=== PATIENT | female | born 1955 | race Caucasian/White ===

== ENCOUNTER → 2024-03-23 09:41 | Outpatient (CLI) | payer MEDICARE, SELFPAY ==
--- OUTSIDE RECORDS SUMMARY | 2024-03-23 10:19 | XMS_ITS | Referral Summary ---
Author Name Unknown Organization [facility] Address [address] [place] [address] Care Team Providers Care Umbrella Tipper Hand Name Role Phone Radha Harris MD Primary Care Provider [phone] Reason for Referral * Specialty Visit (Urgent) - In Process Specialty Diagnoses / Procedures Referred By Rahul de la paz Referred To Contact Diagnoses Left foot infection Open wound of left foot excluding toes without complication, subsequent encounter Radha Harris MD [address] [place] [address] [facility] [address] [place] [id number] Referral ID Status Reason Start Date Expiration Date Visits Requested Visits Authorized [id number] In Process Specialty Services Required 03/13/2024 03/13/2025 99 99 Scheduling Instructions Referral to: [place]: [facility] (POS [id number]) [phone] Please be aware that while I, as your health care provider, have identified this referral as medically indicated, I cannot guarantee your insurance plan will cover it. I recommend you contact your insurance carrier to make sure this is a covered service they will pay for. * Specialty Visit (Urgent) - In Process Specialty Diagnoses / Procedures Referred By Rahul de la paz Referred To Contact Diagnoses Left foot infection Left foot drop Weakness of left lower extremity History of CVA (cerebrovascular accident) Hemiplegia and hemiparesis following cerebral infarction affecting left non-dominant side (HCC) Radha Harris MD [address] [place] [address] Shelia Emery DPM [facility] [address] [place] [address] Referral ID Status Reason Start Date Expiration Date Visits Requested Visits Authorized [id number] In Process Specialty Services Required 02/18/2024 02/17/2025 99 99 Scheduling Instructions Referral to: Non Dr Shelia Emery Medicine Cell Tester [facility] ACN/ Partner: [facility] [address] [facility] [address] P: [phone] F: [phone] Rupert Bass ----Please be aware that while I, as your health care provider, have identified this referral as medically indicated, I cannot guarantee your insurance plan will cover it. I recommend you contact your insurance carrier to make sure this is a covered service they will pay for. Reason for Visit * Reason Onset Date Comments Referral 02/17/2024 Encounter Details Date Type Department Care Team (Late st Contact Info) Description 02/17/2024 Telephone Medicine Primary Care Family Medicine at [address] [phone] Dolores Howell, PSS/PSR NO ADDRESS Referral Allergies Active Allergy Reactions Criticality Noted Date Comments Hydrochlorothiazide Other Low GI & didn't agree with body Prednisone Other High 10/24/2017 Severe agitation; Wanted to kill someone Sulfa Antibiotics Skin: Hives High 08/26/2017 documented as of this encounter (statuses as of 03/12/2024) Medications Medication Sig Dispensed Refills Start Date End Date Status Acetaminophen ER 650 MG Oral Tab CRIndications:Pain after cerebrovascular accident (CVA) Take 1 tablet (650 mg) by mouth every 4 hours as needed for pain. For stroke pain. 100 tablet 1 8 Active Acyclovir 400 MG Oral TabIndications:Recu rrent oral ulcers Take 1 tablet (400 mg) by mouth 2 times a day. For suppression of herpes. 180 tablet 3 8 Active aspirin 81 MG chewable tablet Chew and swallow 1 tablet (81 mg) by mouth daily. 0 Active triamcinolone 0.1 % dental pasteIndications:Ap hthous ulcer Apply to oral lesions BID as needed 5 g 5 3 Active diazePAM 2 MG tabletIndications:C ontrolled substance agreement signed,Spasticity,H istory of CVA (cerebrovascular accident),Spasm,Chr onically on benzodiazepine therapy TAKE ONE(1) TABLET BY MOUTH TWO(2) TIMES DAILY NEEDED FOR ANXIETY OR SPASMS MUST LAST 28 DAYS 56 tablet 0 3 Active venlafaxine ER 37.5 MG 24 hr capsuleIndications: Moderate episode of recurrent major depressive disorder (HCC) TAKE ONE(1) CAPSULE BY MOUTH ONCE DAILY 90 capsule 3 3 Active atorvastatin 80 MG tabletIndications:M ixed hyperlipidemia TAKE ONE(1) TABLET BY MOUTH ONCE DAILY 90 tablet 3 3 Active gabapentin 300 MG capsuleIndications: Neuropathic pain Take one(1) capsule by mouth in the morning, one(1) capsule at noon, and two(2) capsules at bedtime daily 360 capsule 3 4 Active traZODone 100 MG tabletIndications:I nsomnia, unspecified type TAKE ONE(1) TABLET BY MOUTH ONCE DAILY AT BEDTIME ALONG WITH ONE(1) TRAZODONE 50MG TABLET FOR A TOTAL DAILY DOSE OF 150 MG. 90 tablet 1 4 Active traZODone 50 MG tabletIndications:M oderate episode of recurrent major depressive disorder (HCC) TAKE ONE(1) TABLET BY MOUTH AT BEDTIME IN ADDITION TO THE ONE(1) TRAZODONE 100MG TABLET TO GIVE A TOTAL DOSE OF 150MG AT BEDTIME. 90 tablet 3 4 Active busPIRone 15 MG tabletIndications:A nxiety TAKE TWO(2) TABLETS BY MOUTH TWO(2) TIMES DAILY 360 tablet 3 4 Active levothyroxine 112 MCG tabletIndications:H ypothyroidism (acquired) Take 1 tablet (112 mcg) by mouth daily on an empty stomach. 90 tablet 0 4 Active cephalexin 500 MG capsule Take 1 capsule (500 mg) by mouth 2 times a day. 0 Active buPROPion SR 150 MG 12 hr tabletIndications:M oderate episode of recurrent major depressive disorder (HCC) TAKE ONE(1) TABLET BY MOUTH TWO(2) TIMES A DAY. 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 120 tablet 3 3 03/02/20 24 Discontinued traMADol 50 MG tabletIndications:[facility] ([facility] drug therapy,Cramp and spasm Take 1 tablet (50 mg) by mouth 2 times a day as needed for moderate pain or severe pain. 56 tablet 0 4 03/09/20 24 Discontinued documented as of this encounter (statuses as of 03/12/2024) Active Problems Problem Noted Date Diagnosed Date Hemiplegia and hemiparesis f ollowing cerebral infarction affecting left non-dominant side 11/08/2022 Aortic arch atherosclerosis 11/08/2022 Overview: On CTA 04/23/17 Spasticity 12/25/2021 Hyperlipidemia, mixed 01/10/2021 Hypothyroidism (acquired) 01/10/2021 History of CVA (cerebrovascular accident) 2019 Left foot drop 06/30/2020 Essential hypertension 12/28/2019 Onychomycosis 07/16/2019 BEULAH (generalized anxiety disorder) 06/24/2019 [place] In Hand of foot 06/24/2019 Chronic narcotic use 06/10/2019 Overview: She is using tramadol for chronic sciatica 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 Chronically on benzodiazepine therapy 06/10/2019 Rotator cuff impingement syndrome of left should er 08/10/2018 Weakness of left lower extremity 08/10/2018 Controlled substance agreement signed 05/14/2018 Sciatica of left side 09/25/2017 Moderate episode of recurrent major depressive d isorder 09/10/2017 Stenosis of carotid artery 09/03/2017 documented as of this encounter (statuses as of 03/12/2024) Resolved Problems Problem Noted Date Diagnosed Date Resolved Date Aphthous ulcer 09/26/2020 12/20/2023 documented as of this encounter (statuses as of 03/12/2024) Immunizations Name Administration Dates Next Due COVID-19 [email or web address] vector-nr [id number] 01/25/2021 COVID-19 Moderna mRNA bivale nt 6 mos and older, 0.25 or 0.5 mL dose 09/26/2022 DTP 03/24/1963, 0,01/26/1958,12/29,1957 Immune globulin IM (GamaSTAN) 06/20/1997 Influenza quadrivalent 09/03/2021,09/17/2020 Influenza quadrivalent PF 09/03/2019,03/2018,08/14/2017,08/05,08/01/2014 Influenza quadrivalent adjuv anted (Fluad) 09/23/2023,09/06/2022 Influenza quadrivalent high-dose 09/05/2020 Influenza trivalent 10/19/2012,10/24/2011 Influenza trivalent PF 08/24/2015,08/17/2013 Pneumococcal conjugate PCV20 (Prevnar 20) 09/13/2022 Pneumococcal polysaccharide PPSV23 (Pneumovax 23) 04/17/2013 Polio, unspecified 09/14/1964, 4,02/09/1964,06/19,1957 Tdap 01/16/2016,10/24/2011 Zoster live (Zostavax) 09/20/2015 Zoster recombinant (Shingrix) 12/05/2018, 018 poliomyelitis live oral vacc ine trivalent 02/25/1974 documented as of this encounter Social History Tobacco Use Types Packs/Day Years Used Date Smoking Tobacco: Former Cigarettes 1 25 0 11/17/1991 - 11/17/2016 Passive Smoke Exposure: Past Smokeless Tobacco: Never Alcohol Use Standard Drinks/Week Comments No 0 (1 standard drink = 0.6 oz pur e alcohol) PHQ-2 Answer Date Recorded PHQ2 Total Score 0 07/25/2023 Sex and Gender Information Value Date Recorded Sex Assigned at Not on file Gender Identity Not on file Sexual Orientation Not on file documented as of this encounter Miscellaneous Notes * Addendum Note - Radha Harris MD - 03/12/2024 11:53 AM PDTAddended by: RADHA HARRIS on: 03/12/2024 11:53 AM Modules accepted: Orders * Addendum Note - Tiffanie Lopez RN - 03/12/2024 11:49 AM PDTAddended by: TIFFANIE LOPEZ on: 03/12/2024 11:49 AM Modules accepted: Orders * Telephone Encounter - Tiffanie Lopez RN - 03/12/2024 11:40 AM PDT Tori just requested a referral to [facility] three days ago. She is wondering why it is not completed. Explained the referral process & that it will be signed today. It shouldn't require an additional visit since this is a reoccurring/chronic wound/issue. Tiffanie Lopez RN * Telephone Encounter - Dolores Howell PSS/PSMehdi - 03/12/2024 10:02 AM PDT Tori called back, she is not pleased that her referral isn't done. She says that when she sits inDurban Harris's office for a visit it is done at the time, so she doesn't know why this isn't done forher since she called days ago. Warm transfer to RN. Thank you * Telephone Encounter - Dolores Howell PSS/PSMehdi - 03/11/2024 11:04 AM PDT Tori called back to see if this was done yet. Please advise Thank you * Addendum Note - Luis Phan PSS/PSMehdi - 03/09/2024 11:24 AM PDT Addended by: LUIS PHAN on: 03/09/2024 11:24 AM Modules accepted: Orders * Telephone Encounter - Luis Phan PSS/BENITO - 03/09/2024 11:23 AM PDT Per note below, Wound Care referral pended. Provider to complete and sign if approved. Thanks. * Telephone Encounter - Dolores Howell PSS/PSMehdi - 03/09/2024 11:14 AM PDT Tori called because she would like a referral to the wound care center in [place]. She would like this to be placed by Dr. Harris, and she does not want to come in for a visit for this to be done. Could this be done for her based on past notes? Please advise Thank you * Telephone Encounter - Crescencio Edwards PSS/BENITO - 02/18/2024 11:35 AM PDT Patient has reached out to us by Telephone requesting a new Podiatry referral for this patient's left foot infection to be sent to Podiatry, Shelia Briggs. Patient has been seen for this previously last on 01/28/2024. They were last seen in this clinic on 01/28/2024. Referral is pended routing to provider. Please send response back to [facility] [[phone]] * Telephone Encounter - Dolores Howell PSS/BENITO - 02/17/2024 9:35 AM PDT She would like a referral to Podiatry, Shelia Emery. Could this be done for her? Her foot is not healing and she would like to see a specialist for this as she has had several recent visits and it has not resolved. Please advise Thank you documented in this encounter Plan of Treatment Scheduled Referrals Name Type Priority Associated Diagnoses Orde r Schedule Referral to Podiatry Referral STAT Left foot infection Left foot drop Weakness of left lower extremity History of CVA (cerebrovascular accident) Hemiplegia and hemiparesis following cerebral infarction affecting left non-dominant side (HCC) Expected: 02/18/2024, Expires: 02/17/2025 Referral to Wound Care Referral Urgent (Referral Only) Left foot infection Open wound of left foot excluding toes without complication, subsequent encounter Expected: 03/13/2024, Expires: 03/09/2025 documented as of this encounter Visit Diagnoses Diagnosis Left foot infection- Primary Unspecified local infection of skin and subcutaneous tissue Left foot drop Other acquired deformity of ankle and foot Weakness of left lower extremity History of CVA (cerebrovascular accident) Transient ischemic attack (TIA), and cerebral infarction without residual deficits Hemiplegia and hemiparesis following cerebral infarction affecting left non- dominant side (HCC) Open wound of left foot excluding toes without complication, subsequent encounter documented in this encounter Additional Health Concerns Assessment Noted Time PHQ-9 Depression Total Score: 0 07/25/20 23 5:11 PM PDT documented as of this encounter Insurance Payer Benefit Plan / Group Subscriber ID Effective Dates Phone Address Type [employer] [facility] [id number] [address] [place] [address] Medicare documented as of this encounter Care Teams Umbrella Tipper Hand Relationship Specialty Start Date End Date Radha Harris MD PCP - General Family Practice 05/15/22 documented as of this encounter
== END ==
LOC: WC 10:05
PROVIDERS: Family Provider Nurse Practitioner; PCP Nurse Practitioner; Referring Provider Family Medicine; Visit Provider Surgery
DX: L89.893 Pressure ulcer of other site, stage 3 (principal); L84 Corns and callosities; M20.12 Hallux valgus (acquired), left foot; I69.354 Hemiplegia and hemiparesis following cerebral infarction affecting left non-dominant side; R26.9 Unspecified abnormalities of gait and mobility; Z87.891 Personal history of nicotine dependence; M79.672 Pain in left foot
CPT/HCPCS: 11042; 99203; 99213

== ENCOUNTER → 2024-03-29 09:43 | Outpatient (CLI) | payer MEDICARE, SELFPAY | LOC: WC 09:44 | PROVIDERS: Family Provider Nurse Practitioner; PCP Nurse Practitioner; Referring Provider Family Medicine; Visit Provider Surgery | DX: L89.893 Pressure ulcer of other site, stage 3 (principal); L84 Corns and callosities; M21.6X2 Other acquired deformities of left foot; I69.354 Hemiplegia and hemiparesis following cerebral infarction affecting left non-dominant side | CPT/HCPCS: 99212; 99213 ==

== ENCOUNTER → 2024-04-26 10:18 | Outpatient (CLI) | payer MEDICARE, SELFPAY | LOC: WC 10:19 | PROVIDERS: Family Provider Nurse Practitioner; PCP Nurse Practitioner; Referring Provider Family Medicine; Visit Provider Surgery | DX: Z09 Encounter for follow-up examination after completed treatment for conditions other than malignant neoplasm (principal); Z87.2 Personal history of diseases of the skin and subcutaneous tissue; L89.893 Pressure ulcer of other site, stage 3; I69.354 Hemiplegia and hemiparesis following cerebral infarction affecting left non-dominant side | CPT/HCPCS: 99213 ==

== ENCOUNTER → 2024-08-16 08:56 | Outpatient (CLI) | payer MEDICARE, SELFPAY | PROVIDERS: Family Provider Nurse Practitioner; PCP Nurse Practitioner; Referring Provider Family Medicine; Visit Provider Surgery | DX: L89.523 Pressure ulcer of left ankle, stage 3 (principal); L84 Corns and callosities; L53.9 Erythematous condition, unspecified; M21.6X2 Other acquired deformities of left foot; M25.572 Pain in left ankle and joints of left foot | CPT/HCPCS: 11042; 99213; 99214 ==

== ENCOUNTER → 2024-08-16 09:58 | Outpatient (CLI) | payer MEDICARE, SELFPAY ==
--- NOTE | 2024-08-16 10:01 | DI.RAD.S_ITS ---
PROCEDURE: XR ANKLE LT MIN 3V INDICATIONS: Eval for osteo, pressure ulcer of left lateral ankle. TECHNIQUE: 3 views of the ankle were acquired. COMPARISON: None. FINDINGS: Bones: There is a permeative trabecular pattern in the talus and visualized midfoot including the navicular and cuneiform with some trabecular disorganization. Tibiotalar and talocalcaneal joints: Normal in width and alignment without arthritic change. Soft tissues: No soft tissue swelling, calcification or mass. IMPRESSION: Permeative trabecular pattern in the talus navicular and cuneiform. Suggest patient return for full better position foot series for better evaluation. This could indicate infection or Charcot foot development Dictated by: Freddie Deras M.D. on 08/17/2024 at 9:50 Approved by: Freddie Deras M.D. on 08/17/2024 at 9:53
== END ==
PROVIDERS: Family Provider Nurse Practitioner; PCP Family Medicine; Referring Provider Surgery; Visit Provider Surgery
DX: L89.529 Pressure ulcer of left ankle, unspecified stage (principal)
CPT/HCPCS: 73610

== ENCOUNTER → 2024-08-30 08:52 | Outpatient (CLI) | payer MEDICARE, SELFPAY | LOC: WC 08:52 | PROVIDERS: Family Provider Nurse Practitioner; PCP Family Medicine; Referring Provider Family Medicine; Visit Provider Surgery | DX: L89.523 Pressure ulcer of left ankle, stage 3 (principal); L84 Corns and callosities; L53.9 Erythematous condition, unspecified; R23.4 Changes in skin texture; M21.6X2 Other acquired deformities of left foot; I69.354 Hemiplegia and hemiparesis following cerebral infarction affecting left non-dominant side | CPT/HCPCS: 11042 ==

== ENCOUNTER → 2024-09-20 08:53 | Outpatient (CLI) | payer MEDICARE, SELFPAY | LOC: WC 08:53 | PROVIDERS: Family Provider Nurse Practitioner; PCP Family Medicine; Referring Provider Family Medicine; Visit Provider Surgery | DX: L89.523 Pressure ulcer of left ankle, stage 3 (principal); I69.354 Hemiplegia and hemiparesis following cerebral infarction affecting left non-dominant side | CPT/HCPCS: 99213 ==

== ENCOUNTER → 2024-10-11 08:50 | Outpatient (CLI) | payer MEDICARE, MEDICAID, SELFPAY | PROVIDERS: Family Provider Nurse Practitioner; PCP Family Medicine; Referring Provider Family Medicine; Visit Provider Surgery | DX: L89.523 Pressure ulcer of left ankle, stage 3 (principal); L84 Corns and callosities; R23.4 Changes in skin texture; M21.6X2 Other acquired deformities of left foot; Z86.73 Personal history of transient ischemic attack (TIA), and cerebral infarction without residual deficits | CPT/HCPCS: 11042 ==